=== PATIENT | female | born 2000 | race Hispanic/Latino ===

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

== ENCOUNTER → 2021-02-18 | Outpatient (CLI) | payer OTHER ==
--- NOTE | 2021-02-18 10:31 | REP ---
INDICATION: MALFUNCTION OF UTERUS COMPARISON: None. TECHNIQUE: Transabdominal pelvic ultrasound followed by transvaginal examination for better evaluation of the endometrium and adnexa with color Doppler evaluation of the ovaries. FINDINGS: Bladder is unremarkable and measures approximately 5.5 x 2.0 x 8.0 cm. 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 Bilateral ovaries are normal in appearance and vascularity without evidence for torsion. Right ovary measures 2.6 x 1.2 x 3.1 cm; R I = 0.56. Left ovary measures 3.1 x 2.1 x 1.6 cm; R I = 0.59. No pelvic fluid or adnexal mass lesion IMPRESSION: Didelphys uterus. Otherwise normal pelvic ultrasound. <Electronically signed by Pastor Ortega > 02/18/21 [id number]
== END ==
LOC: M RAD 09:25
PROVIDERS: ATTEND Obstetrics & Gynecology
DX: Q51.28 Other and unspecified doubling of uterus (principal)

== ENCOUNTER → 2021-05-15 | Outpatient (REF) | payer OTHER ==
[2021-05-15 18:12] LABS: AMORPHOUS SEDIMENT SMALL (NEGATIVE); APPEARANCE, URINE TURBID (CLEAR); BACTERIA, URINE AUTO NEGATIVE (NEGATIVE); BILIRUBIN, URINE AUTO NEGATIVE (NEGATIVE); BLOOD, URINE BLOOD 1+ (NEGATIVE); COLOR, URINE YELLOW (YELLOW); GLUCOSE, URINE (UA) AUTO NEGATIVE (NEGATIVE); KETONE, URINE AUTO NEGATIVE (NEGATIVE); LEUKOCYTE ESTERASE, URINE AUTO NEGATIVE (NEGATIVE); NITRITE, URINE AUTO POSITIVE (NEGATIVE); PROTEIN, URINE AUTO NEGATIVE (NEGATIVE); RBC, URINE AUTO 2 /HPF (0-3); SPECIFIC GRAVITY URINE AUTO 1.025 (1.002-1.035); SQUAMOUS EPITHELIAL CELL UR AU 0 /HPF (0-6); UROBILINOGEN, URINE AUTO 0.2 mg/dL (0.0-2.0); WBC, URINE AUTO 0 /HPF (0-3)
== END ==
LOC: M LAB REF 16:36
PROVIDERS: ATTEND Obstetrics & Gynecology
DX: N39.0 Urinary tract infection, site not specified (principal)

== ENCOUNTER → 2021-06-27 | Outpatient (CLI) | payer OTHER ==
--- NOTE | 2021-06-28 03:46 | REP ---
INDICATION: CONGENITAL MALFORMATION UTERUS/CERVIX COMPARISON: None TECHNIQUE: Real time hernandez scale ultrasound examination using curved array transducer. FINDINGS: Bilateral testicles are normal in contour, size, echogenicity, and reniform shape. No hydronephrosis, nephrolithiasis, cystic or renal mass lesion. No perinephric fluid collection. Bladder is unremarkable and bilateral ureteral jets are identified. Right kidney measures 9.0 x 5.1 x 3.5 cm. Left kidney measures 8.6 x 4.2 x 3.5 cm IMPRESSION: 1. Normal renal ultrasound. 2. <Electronically signed by Pastor Ortega > 06/28/21 [id number]
== END ==
LOC: M RAD 14:41
PROVIDERS: ATTEND Obstetrics & Gynecology
DX: Q51.818 Other congenital malformations of uterus (principal); Q51.828 Other congenital malformations of cervix

== ENCOUNTER → 2021-09-23 | Outpatient (REF) | LOC: M LABSMTC 09:07 | PROVIDERS: ATTEND Pediatrics | DX: Z20.828 Contact with and (suspected) exposure to other viral communicable diseases (principal) ==

== ENCOUNTER → 2021-09-26 | Outpatient (REF) | payer OTHER | LOC: M SFHCPLAZ 10:19 | PROVIDERS: ATTEND Physician Assistant | DX: R50.9 Fever, unspecified (principal) | CPT/HCPCS: 87633; U0003 ==

== ENCOUNTER → 2022-01-27 | Outpatient (CLI) | payer OTHER | LOC: M WHC 09:07 | PROVIDERS: ATTEND Internal Medicine Hematology | DX: R10.32 Left lower quadrant pain (principal) ==

== ENCOUNTER → 2022-09-03 | Outpatient (REF) ==
[2022-09-03 13:04] LABS: RSV AMPLIFICATION NEGATIVE (NEGATIVE)
== END ==
LOC: M LABSMTC 09:56
PROVIDERS: ATTEND Family Medicine
DX: Z20.822 Contact with and (suspected) exposure to COVID-19 (principal)

== ENCOUNTER → 2023-03-05 | Outpatient (REF) ==
[2023-03-05 14:28] LABS: RSV AMPLIFICATION NEGATIVE (NEGATIVE)
== END ==
LOC: M EMP 12:53
PROVIDERS: ATTEND Family Medicine
DX: Z11.52 Encounter for screening for COVID-19 (principal)

== ENCOUNTER → 2023-08-13 | Outpatient (REF) | LOC: M EMP 08-12 12:50 | PROVIDERS: ATTEND Family Medicine | DX: Z11.52 Encounter for screening for COVID-19 (principal) ==

== ENCOUNTER → 2024-02-03 | Outpatient (CLI) | payer OTHER ==
[2024-02-03 11:36] LABS: BASO # 0.1 10^3/uL (0.0-0.2); BASO % 0.9 % (0.0-1.0); EOS # 0.1 10^3/uL (0.0-0.5); EOS % 0.9 % (0.0-3.0); HEMATOCRIT 38.7 % (36.0-47.0); HEMOGLOBIN 13.5 g/dl (12.0-15.5); LYMPH # 2.7 10^3/uL (1.5-5.0); LYMPH % 38.6 % (24.0-44.0); MEAN CORPUSCULAR HEMOGLOBIN 31.4 pg (27.0-33.0); MEAN CORPUSCULAR HGB CONC 34.9 g/dl (32.0-36.5); MONO # 0.5 10^3/uL (0.0-0.8); MONO % 7.4 % (2.0-8.0); NEUTROPHILS # 3.6 10^3/uL (1.5-8.5); NEUTROPHILS % 52.1 % (36.0-66.0); PLATELET COUNT, AUTOMATED 279 10^3/uL (150-450); WHITE BLOOD COUNT 6.9 10^3/uL (4.0-10.0)
[2024-02-03 11:50] LABS: URIC ACID 3.2 MG/DL (3.1-7.8)
[2024-02-03 11:52] LABS: C REACTIVE PROTEIN QUANTITATIV < 0.40 MG/DL (<1.0)
[2024-02-03 11:53] LABS: TOTAL IRON BINDING CAPACITY 372 UG/DL (250-425)
[2024-02-03 11:54] LABS: ALBUMIN 4.1 G/DL (3.2-5.2); ALKALINE PHOSPHATASE 65 U/L (46-116); ALT/SGPT 14 U/L (7.0-40); AST/SGOT < 8 U/L (<34); BILIRUBIN,TOTAL 0.7 MG/DL (0.3-1.2); BLOOD UREA NITROGEN 11 MG/DL (9-23); CALCIUM LEVEL 9.2 MG/DL (8.5-10.1); CARBON DIOXIDE LEVEL 26 MMOL/L (20-31); CHLORIDE LEVEL 106 MMOL/L (98-107); CREATININE FOR GFR 0.68 MG/DL (0.55-1.30); GLOMERULAR FILTRATION RATE > 60.0 (>60); GLUCOSE, FASTING 80 MG/DL (60-100); IRON (FE) 90 UG/DL (50-170); PERCENT SATURATION 24.2 % (13.2-45.0); POTASSIUM SERUM 3.6 MMOL/L (3.5-5.1); SODIUM LEVEL 137 MMOL/L (136-145); TOTAL PROTEIN 7.5 G/DL (5.7-8.2)
[2024-02-03 11:55] LABS: FOLATE 14.8 NG/ML (>5.4); RHEUMATOID FACTOR QUANT < 3.5 IU/ML (<14); THYROID STIMULATING HORMONE 3.702 uIU/ML (0.55-4.78); TOTAL 25(OH) VITAMIN D 13.9 NG/ML (20.0-100.0)
[2024-02-03 11:56] LABS: ERYTHROCYTE SEDIMENTATION RATE 4 mm/hr (0-20); FREE T4 1.25 NG/DL (0.89-1.76); VITAMIN B12 LEVEL 766 PG/ML (211-911)
== END ==
LOC: M LAB 09:50
PROVIDERS: ATTEND Physician Assistant
DX: M32.9 Systemic lupus erythematosus, unspecified (principal)

== ENCOUNTER → 2024-03-02 | Outpatient (CLI) | payer OTHER ==
[~2024-03-02] MED LIST: E-Z-GAS II EFFERVESCENT PACKET (SODIUM BICARB./CITRIC ACID/SIMETHICONE) As Ordered ONE; E-Z-HD 98% w/w 340GM SUSP BTL As Ordered ONE; E-Z-PAQUE 96% w/w SUSP 176GM BTL As Ordered ONE
== END ==
LOC: M RAD 08:48
PROVIDERS: ATTEND Physician Assistant
DX: K21.9 Gastro-esophageal reflux disease without esophagitis (principal); R11.2 Nausea with vomiting, unspecified

== ENCOUNTER → 2024-10-03 | Outpatient (REF) | LOC: M EMP 10:30 | PROVIDERS: ATTEND Family Medicine | DX: Z11.52 Encounter for screening for COVID-19 (principal) ==

== ENCOUNTER → 2024-11-10 | Outpatient (REF) | payer OTHER | LOC: M SFHCLERA 16:42 | DX: R30.0 Dysuria (principal) ==

== ENCOUNTER → 2025-03-31 | Outpatient (CLI) | payer OTHER ==
[~2025-03-31] MED LIST changes: +ASHW500C PO; -E-Z-GAS II EFFERVESCENT PACKET (SODIUM BICARB./CITRIC ACID/SIMETHICONE) As Ordered ONE; -E-Z-HD 98% w/w 340GM SUSP BTL As Ordered ONE; -E-Z-PAQUE 96% w/w SUSP 176GM BTL As Ordered ONE; +HYDR-3363 PO; +LORA2CON5 PO; +TRAZ1TAB11 PO; +VITA100093 PO
== END ==
LOC: M WHC 11:35
PROVIDERS: ATTEND Nurse Practitioner Family
DX: Q51.28 Other and unspecified doubling of uterus (principal)

== ENCOUNTER → 2025-05-01 | Outpatient (CLI) | payer OTHER | LOC: M WHC 13:59 | PROVIDERS: ATTEND Nurse Practitioner Family | DX: N83.202 Unspecified ovarian cyst, left side (principal) ==

== ENCOUNTER → 2025-05-04 | Outpatient (CLI) | payer OTHER ==
[2025-05-04 08:06] LABS: BASO # 0.1 10^3/uL (0.0-0.2); BASO % 0.8 % (0.0-1.0); EOS # 0.1 10^3/uL (0.0-0.5); EOS % 0.7 % (0.0-3.0); LYMPH # 2.4 10^3/uL (1.5-5.0); LYMPH % 28.5 % (24.0-44.0); MONO # 0.7 10^3/uL (0.0-0.8); MONO % 8.3 % (2.0-8.0); NEUTROPHILS # 5.2 10^3/uL (1.5-8.5); NEUTROPHILS % 61.3 % (36.0-66.0); PLATELET COUNT, AUTOMATED 282 10^3/uL (150-450)
[2025-05-04 08:20] LABS: ESTIMATED AVERAGE GLUCOSE 91.0 MG/DL (60-110)
[2025-05-04 08:38] LABS: ALT/SGPT 19 U/L (7.0-40); AST/SGOT 17 U/L (<34); CALCIUM LEVEL 9.5 MG/DL (8.5-10.1); CARBON DIOXIDE LEVEL 25 MMOL/L (20-31); CHLORIDE LEVEL 105 MMOL/L (98-107); CREATININE FOR GFR 0.70 MG/DL (0.55-1.30); GLOMERULAR FILTRATION RATE > 90.0 (>60); POTASSIUM SERUM 3.4 MMOL/L (3.5-5.1); SODIUM LEVEL 140 MMOL/L (136-145)
[2025-05-04 08:42] LABS: FREE T4 1.22 NG/DL (0.89-1.76)
== END ==
LOC: M LAB 07:26
DX: R63.6 Underweight (principal)

== ENCOUNTER → 2025-05-26 | Outpatient (REF) | payer OTHER | LOC: M SFHCLERA 17:12 | DX: R30.0 Dysuria (principal) ==